=== PATIENT | male | born 1970 | race American Indian/Alaskan Native ===

== ENCOUNTER 2017-09-01 12:16 | Inpatient (IN) | payer OTHER ==
[2017-09-01 12:24] VITALS: RESP 18
[2017-09-01 13:23] LABS: BASO # 0.2 K/uL (0.0-0.2); BASO % 3.8 % (0.0-2.0); EOS # 0.1 K/uL (0.0-0.7); EOS % 1.6 % (0.0-4.0); HEMOGLOBIN 14.5 g/dL (12.0-18.0); LYMPH # 1.2 K/uL (1.0-4.3); LYMPH % 25.3 % (20.0-40.0); MEAN CELL VOLUME 100.5 fL (80.0-94.0); MEAN CORPUSCULAR HEMOGLOBIN 35.7 pg (27.0-31.0); MEAN CORPUSCULAR HGB CONC 35.5 g/dL (33.0-37.0); MEAN PLATELET VOLUME 8.3 fL (7.2-11.7); MONO # 0.5 K/uL (0.0-0.8); MONO % 10.2 % (0.0-10.0); NEUT # 2.7 K/uL (1.8-7.0); NEUT % 59.1 % (50.0-75.0); NRBC % 0.2 % (0.0-2.0); PLATELET COUNT 155 K/uL (130-400); RBC 4.07 Mil/uL (4.40-5.90); RED CELL DISTRIBUTION WIDTH 13.8 % (11.5-14.5); WHITE BLOOD COUNT 4.6 K/uL (4.8-10.8)
[2017-09-01 13:45] LABS: ALT/SGPT 12 U/L (21-72); AST/SGOT 27 U/L (17-59); BLOOD UREA NITROGEN 8 mg/dL (9-20); CALCIUM 9.1 mg/dl (8.6-10.4); GFR AFRICAN-AMERICAN > 60; GFR NON-AFRICAN AMERICAN > 60
--- NOTE | 2017-09-01 14:00 | C.PDOC ---
History Of Present Illness 46 year old male presents to the ED requesting detox from alcohol. Patient was previously prescreened. Patient reports being a heavy drinker and that his last drink was last night. Patient denies SI/HI, hallucinations, CP, SOB. Time Seen by Provider: 09/01/17 12:30 Chief Complaint (Nursing): Substance Abuse History Per: Patient History/Exam Limitations: no limitations Onset/Duration Of Symptoms: Days Current Symptoms Are (Timing): Still Present Suicide/Self Injury Attempted (Context): None Modifying Factor(s): Alcohol Associated Symptoms: denies: Depression, Suicidal Thoughts, Suicidal Plan Recent travel outside of the [place]: No Additional History Per: Patient Past Medical History Reviewed: Historical Data, Nursing Documentation, Vital Signs Vital Signs: Last Vital Signs Temp 98.4 F 09/01/17 15:21 Pulse 83 09/01/17 15:21 Resp 18 09/01/17 15:21 BP 148/46 L 09/01/17 15:21 Pulse Ox 99 09/01/17 15:21 - Medical History PMH: No Chronic Diseases Surgical History: No Surg Hx Family History: States: Unknown Family Hx - Social History Hx Tobacco Use: No Hx Alcohol Use: Yes Hx Substance Use: No - Immunization History Hx Tetanus Toxoid Vaccination: Yes Hx Influenza Vaccination: Yes Hx Pneumococcal Vaccination: No Review Of Systems Constitutional: Negative for: Fever, Chills Cardiovascular: Negative for: Chest Pain Respiratory: Negative for: Shortness of Breath Gastrointestinal: Negative for: Abdominal Pain Skin: Negative for: Rash Psych: Negative for: Depression, Suicidal ideation Physical Exam - Physical Exam Appears: Non-toxic, No Acute Distress Skin: Normal Color, Warm, Dry Head: Atraumatic, Normacephalic Eye(s): bilateral: Normal Inspection Nose: No Discharge Oral Mucosa: Moist Neck: Normal ROM, Supple Chest: Symmetrical Cardiovascular: Rhythm Regular, No Murmur Respiratory: Normal Breath Sounds, No Rales, No Rhonchi, No Wheezing Gastrointestinal/Abdominal: Soft, No Tenderness, No Guarding, No Rebound Extremity: Normal ROM, No Tenderness, No Swelling Neurological/Psych: Oriented x3 Gait: Steady ED Course And Treatment - Laboratory Results Result Diagrams: 09/01/17 13:18 09/01/17 13:18 O2 Sat by Pulse Oximetry: 97 (ON RA) Pulse Ox Interpretation: Normal Progress Note: Patient is medically cleared and is stable for Detox admission. Medical Decision Making Medical Decision Making: Impression: alcohol detox Plan: * Labs * UA * Crisis notified Disposition - Disposition Disposition: HOSPITALIZED Disposition Time: 14:52 Condition: STABLE - Clinical Impression Clinical Impression: Alcohol dependence - PA / AUDITOR SUPERVISOR / Resident Statement MD/DO has reviewed & agrees with the documentation as recorded. - Scribe Statement The provider has reviewed the documentation as recorded by the Scribe Berto Bardales All medical record entries made by the Scribe were at my direction and personally dictated by me. I have reviewed the chart and agree that the record accurately reflects my personal performance of the history, physical exam, medical decision making, and the department course for this patient. I have also personally directed, reviewed, and agree with the discharge instructions and disposition. Decision To Admit - Pt Status Changed To: Hospital Disposition Of: Inpatient - Admit Certification Admit to Inpatient:: After my assessment, the patient will require hospitalization for at least two midnights. This is because of the severity of symptoms shown, intensity of services needed, and/or the medical risk in this patient being treated as an outpatient. - InPatient: Physician Admission Certification: I certify that this patient requires 2 or more midnights of care for the following reason:: needs more than 2 days for detox - . Bed Request Type: Detox Admitting Physician: Robert Poe Patient Diagnosis: Alcohol dependence
[2017-09-01 14:04] LABS: SQUAMOUS EPITHIAL 3 /hpf (0-5); URINE BILIRUBIN NEGATIVE (NEGATIVE); URINE BLOOD NEGATIVE (NEGATIVE); URINE CLARITY Hazy (Clear); URINE GLUCOSE (UA) NORMAL (Normal); URINE LEUKOCYTE ESTERASE NEG Leu/uL (Negative); URINE PROTEIN 1+ mg/dL (NEGATIVE)
[2017-09-01 14:05] LABS: URINE COLOR YELLOW (YELLOW)
[2017-09-01 14:17] LABS: BARBITURATES, UR NEGATIVE (NEGATIVE); BENZODIAZEPINES, UR NEGATIVE (NEGATIVE); OPIATES, UR NEGATIVE (NEGATIVE); PHENCYCLIDINE, UR NEGATIVE (NEGATIVE)
[2017-09-01 14:26] LABS: EOSINOPHIL 1 % (0-4); LYMPHOCYTE 38 % (20-40); MONOCYTE 10 % (0-10); NEUTROPHIL 51 % (50-75); PLATELET ESTIMATE NORMAL (NORMAL); TOTAL CELLS COUNTED 100
[2017-09-01 14:27] LABS: OVALOCYTES SLIGHT
[2017-09-01 15:21] VITALS: BP 148/46; PULSE 83; TEMP 98.4
[2017-09-01 18:04] VITALS: O2SAT 97
--- NOTE | 2017-09-01 22:38 | PCM.PYCHDC ---
Discharge Summary - Discharge Note Laboratory Data: Abnormal Lab Results 09/01/17 09/01/17 09/01/17 13:18 13:18 13:50 WBC 4.6 L RBC 4.07 L Hgb 14.5 Hct 40.9 MCV 100.5 H MCH 35.7 H MCHC 35.5 RDW 13.8 Plt Count 155 MPV 8.3 Neut % (Auto) 59.1 Lymph % (Auto) 25.3 [place] % (Auto) 10.2 H Eos % (Auto) 1.6 Baso % (Auto) 3.8 H Neut # (Auto) 2.7 Lymph # (Auto) 1.2 [place] # (Auto) 0.5 Eos # (Auto) 0.1 Baso # (Auto) 0.2 Neutrophils % (Manual) 51 Lymphocytes % (Manual) 38 Monocytes % (Manual) 10 Eosinophils % (Manual) 1 Platelet Estimate Normal Macrocytosis (manual) Moderate Ovalocytes Slight Sodium 148 Potassium 3.7 Chloride 105 Carbon Dioxide 29 Anion Gap 18 BUN 8 L Creatinine 0.7 L Est GFR ( Amer) > 60 Est GFR (Non-Af Amer) > 60 Random Glucose 86 Calcium 9.1 Total Bilirubin 0.5 AST 27 ALT 12 L Alkaline Phosphatase 76 Total Protein 8.0 Albumin 4.0 Globulin 4.0 H Albumin/Globulin Ratio 1.0 Urine Color Yellow Urine Clarity Hazy Urine pH 5.0 Ur Specific [place] 1.026 Urine Protein 1+ H Urine Glucose (UA) Normal Urine Ketones Trace Urine Blood Negative Urine Nitrate Negative Urine Bilirubin Negative Urine Urobilinogen 4.0 Ur Leukocyte Esterase Neg Urine WBC (Auto) 3 Urine RBC (Auto) 2 Ur Squamous Epith Cells 3 Urine Opiates Screen Urine Methadone Screen Ur Barbiturates Screen Ur Phencyclidine Scrn Ur Amphetamines Screen U Benzodiazepines Scrn U Oth Cocaine Metabols U Cannabinoids Screen Alcohol, Quantitative 146 H 09/01/17 13:50 WBC RBC Hgb Hct MCV MCH MCHC RDW Plt Count MPV Neut % (Auto) Lymph % (Auto) [place] % (Auto) Eos % (Auto) Baso % (Auto) Neut # (Auto) Lymph # (Auto) [place] # (Auto) Eos # (Auto) Baso # (Auto) Neutrophils % (Manual) Lymphocytes % (Manual) Monocytes % (Manual) Eosinophils % (Manual) Platelet Estimate Macrocytosis (manual) Ovalocytes Sodium Potassium Chloride Carbon Dioxide Anion Gap BUN Creatinine Est GFR ( Amer) Est GFR (Non-Af Amer) Random Glucose Calcium Total Bilirubin AST ALT Alkaline Phosphatase Total Protein Albumin Globulin Albumin/Globulin Ratio Urine Color Urine Clarity Urine pH Ur Specific [place] Urine Protein Urine Glucose (UA) Urine Ketones Urine Blood Urine Nitrate Urine Bilirubin Urine Urobilinogen Ur Leukocyte Esterase Urine WBC (Auto) Urine RBC (Auto) Ur Squamous Epith Cells Urine Opiates Screen Negative Urine Methadone Screen Negative Ur Barbiturates Screen Negative Ur Phencyclidine Scrn Negative Ur Amphetamines Screen Negative U Benzodiazepines Scrn Negative U Oth Cocaine Metabols Negative U Cannabinoids Screen Negative Alcohol, Quantitative Consultations:: List each consultation separately and include: 1. Reason for request. 2. Findings. 3. Follow-up Summary of Hospital Course include:: 1. Description of specific treatment plan utilized for patients during their course of treatmen. 2. Summarize the time- course for resolution of acute symptoms and/or regressed behaviors. 3. Describe issues identified and worked on during hospitalization. 4. Describe medication utilized. 5. Describe medical problems identified and treated. 6. Reassessment of suicide risk Summary of Hospital Course: The pt was admitted for detox, but he AMA'ed from the initial search step. He claimed he was NOT aware that he could not keep his cell phone with him. It is not clear if he was just using this as an excuse, b/c he was clearly informed before admission about no phone policy. Risks of leaving AMA discussed, incl. OD and , and he still left. - Final Diagnosis (DSM 5) Condition upon Discharge: FAIR Disposition: AGAINST MEDICAL ADVICE
== END 2017-09-01 15:45 | disposition left against medical advice (07) | DRG 749 ==
LOC: C.ER 12:16 → C.7D 14:51
PROVIDERS: ADMIT Psychiatry & Neurology Psychiatry; ATTEND Psychiatry & Neurology Psychiatry
DX: F10.20 Alcohol dependence, uncomplicated (principal); Y90.6 Blood alcohol level of 120-199 mg/100 ml

== ENCOUNTER 2017-09-03 23:15 | Emergency (ER) | payer OTHER ==
--- NOTE | 2017-09-03 23:25 | C.PDOC ---
History Of Present Illness pt states that he has been having some rectal pain and bleeding with bowel movements. No f/c/n/v no dizziness, Has been drinking alcohol more than usual over the last few weeks. Has been straining Time Seen by Provider: 09/03/17 23:24 Chief Complaint (Nursing): GI Problem History Per: Patient History/Exam Limitations: no limitations Onset/Duration Of Symptoms: Days Current Symptoms Are (Timing): Still Present Number Of Bleeding Episodes: Multiple: Amount of Blood Loss: Small Severity: Mild Pain Scale Rating Of: 3 Quality Of Discomfort: Burning Associated Symptoms: Rectal Bleeding. denies: Nausea, Vomiting, Diarrhea Modifying Factors: None Recent travel outside of the [place]: No Additional History Per: Patient Past Medical History Reviewed: Historical Data, Nursing Documentation, Vital Signs Vital Signs: Last Vital Signs Temp 98.2 F 09/03/17 23:23 Pulse 92 H 09/03/17 23:23 Resp 20 09/03/17 23:23 BP 132/78 09/03/17 23:23 Pulse Ox 97 09/03/17 23:23 - Medical History PMH: Denies: Diabetes, Hepatitis, HIV, HTN, Seizures, Sexually Transmitted Disease Family History: States: No Known Family Hx - Social History Hx Tobacco Use: No Hx Alcohol Use: Yes Hx Substance Use: No - Immunization History Hx Tetanus Toxoid Vaccination: Yes Hx Influenza Vaccination: Yes Hx Pneumococcal Vaccination: No Review Of Systems Constitutional: Negative for: Fever, Chills Cardiovascular: Negative for: Chest Pain Respiratory: Negative for: Shortness of Breath Gastrointestinal: Positive for: Rectal Pain (bleeding). Negative for: Nausea, Vomiting Musculoskeletal: Negative for: Back Pain Skin: Negative for: Rash Neurological: Negative for: Weakness Psych: Negative for: Anxiety Physical Exam - Physical Exam Appears: Non-toxic, No Acute Distress Skin: Warm, Dry Oral Mucosa: Moist Chest: Symmetrical Cardiovascular: Rhythm Regular Respiratory: No Rales, No Rhonchi, No Wheezing Gastrointestinal/Abdominal: Soft, No Tenderness, No Distention Rectal: Hemorrhoids (non thrombosed, small amount of blood see, small fissure) Extremity: Normal ROM Neurological/Psych: Oriented x3, Normal Speech, Normal Cognition ED Course And Treatment Pulse Ox Interpretation: Normal (97) Disposition Counseled Patient/Family Regarding: Studies Performed, Diagnosis, Need For Followup, Rx Given - Disposition Referrals: [facility] [Outside] [facility] [Outside] Disposition: HOME/ ROUTINE Disposition Time: 23:25 Condition: FAIR Additional Instructions: Please return if symptoms recur Prescriptions: Hydrocortisone 2.5% (Rectal) [Anusol-HC] 30 applic WI BID #30 tube Polyethylene Glycol 3350 [Miralax] 17 gm PO DAILY #270 ml Instructions: Hemorrhoids (DC) Forms: [employer] (Uzbek) - Clinical Impression Clinical Impression: Hemorrhoids
[2017-09-03 23:28] VITALS: RESP 20
[2017-09-04 00:09] VITALS: BP 130/70; PULSE 78; TEMP 98; O2SAT 98
== END 2017-09-04 00:09 | disposition home or self-care (01) ==
LOC: C.ER 23:15 → MERGE 23:15 → C.ER 09-04 00:09
DX: K64.9 Unspecified hemorrhoids (principal)

== ENCOUNTER 2018-04-25 15:16 | Emergency (ER) | payer OTHER ==
[2018-04-25 16:20] VITALS: BP 168/96; PULSE 90; TEMP 98.9; O2SAT 98
--- NOTE | 2018-04-25 18:38 | C.PDOC ---
History Of Present Illness 47 year old male with PMHx of hemorrhoids presents to the ED complaining of hemorrhoids for 4 days. Notes he took Preparation H with no relief. Denies any abdominal pain, nausea, vomiting, fever, chills, diarrhea, back pain, chest pain. Time Seen by Provider: 04/25/18 18:38 Chief Complaint (Nursing): GI Problem History Per: Patient History/Exam Limitations: no limitations Onset/Duration Of Symptoms: Days (4) Current Symptoms Are (Timing): Still Present Associated Symptoms: denies: Fever, Chills, Nausea, Vomiting, Diarrhea, Back Pain, Chest Pain Past Medical History Reviewed: Historical Data, Nursing Documentation, Vital Signs Vital Signs: Last Vital Signs Temp 98.9 F 04/25/18 16:18 Pulse 90 04/25/18 16:18 Resp 18 04/25/18 16:18 BP 168/96 H 04/25/18 16:18 Pulse Ox 98 04/25/18 16:18 - Medical History PMH: Denies: Diabetes, Hepatitis, HIV, HTN, Seizures, Sexually Transmitted Disease Other Surgeries: Ankle surgery Family History: States: No Known Family Hx - Social History Hx Tobacco Use: No Hx Alcohol Use: Yes Hx Substance Use: No - Immunization History Hx Tetanus Toxoid Vaccination: No Hx Influenza Vaccination: No Hx Pneumococcal Vaccination: No Review Of Systems Constitutional: Negative for: Fever, Chills Eyes: Negative for: Pain, Vision Change ENT: Negative for: Ear Pain Cardiovascular: Negative for: Chest Pain Respiratory: Negative for: Cough, Shortness of Breath Gastrointestinal: Positive for: Rectal Pain. Negative for: Nausea, Vomiting, Abdominal Pain, Diarrhea, Constipation, Melena, Hematochezia, Hematemesis Genitourinary: Positive for: Other (hemorrhoid ). Negative for: Dysuria, Frequency, Incontinence, Hematuria, Penile Discharge, Scrotal Pain Musculoskeletal: Negative for: Back Pain Neurological: Negative for: Weakness, Numbness Psych: Negative for: Anxiety Physical Exam - Physical Exam Appears: Non-toxic, No Acute Distress Skin: Warm, Dry, No Rash Head: Normacephalic Eye(s): bilateral: Normal Inspection Nose: Normal Oral Mucosa: Moist Neck: Supple, Other (no meningeal signs) Cardiovascular: Rhythm Regular Respiratory: No Rales, No Rhonchi, No Wheezing Gastrointestinal/Abdominal: Soft, No Tenderness, No Organomegaly, No Mass, No Distention, No Guarding, No Rebound, No Hernia, No Ascites, No Other Rectal: No Maroon Stool, No Melena, No Blood Streaked Stool, Hemorrhoids (1 non- convulsed external hemorrhoid at 9 o'clock ), No Mass, No Tenderness Back: No CVA Tenderness Extremity: Bilateral: Atraumatic, Normal Color And Temperature, Normal ROM Neurological/Psych: Oriented x3, Normal Speech Gait: Steady ED Course And Treatment O2 Sat by Pulse Oximetry: 98 (RA) Pulse Ox Interpretation: Normal Medical Decision Making Medical Decision Makin yr old male p/w non thrombosed external hemrrhoid. No bloody or dark stool per pt. Just pain. No erythema or crepitus. Pt has been taking preparation H with mild relief: asking for lidocaine for outpt rx. No internal hemrrhoids on exam. Only external. Abd non-ttp Plan - Xylocaine 2% Given xylocaine rx and script for outpt rx. Pt agreeable Disposition - Disposition Disposition Time: 19:21 Condition: GOOD Forms: [employer] (Telugu) - Clinical Impression Clinical Impression: External hemorrhoid
[2018-04-25] MEDS ORDERED: Lidocaine 2% Jelly (Uro-Jet) TOP ONE (19:08)
[2018-04-25] MEDS ORDERED: Lidocaine 2% Jelly (Uro-Jet) ONE (19:54)
[2018-04-25 21:08] VITALS: RESP 20
== END 2018-04-25 20:00 | disposition home or self-care (01) ==
LOC: C.ER 15:16
DX: K64.4 Residual hemorrhoidal skin tags (principal)